=== PATIENT | female | born 1945 | race Caucasian/White ===

== ENCOUNTER 2017-08-15 19:25 | Emergency (ER) | payer OTHER ==
[~2017-08-15] VITALS: Ht 160 cm; Wt 57.0 kg
[2017-08-15 19:51] VITALS: Ht 160 cm; Wt 57.0 kg
[2017-08-15] MEDS ORDERED: morphine 4 MG/ML VIAL IV STA (21:04)
[2017-08-15] MEDS ORDERED: ONDANSETRON 4 MG INJ IV STA (21:04)
[2017-08-15 21:27] LABS: BASOPHILS % 0.4 % (0.0-2.0); EOSINOPHILS % 0.2 % (0.0-7.0); HEMATOCRIT 40.9 % (37.0-47.0); HEMOGLOBIN 13.8 g/dl (12.0-16.0); LYMPHOCYTES # 1.4 10^3/ul (0.8-2.9); MEAN CORPUSCULAR HEMOGLOBIN 30.1 pg (29.0-33.0); MEAN CORPUSCULAR HGB CONC 33.7 g/dl (32.0-37.0); MEAN CORPUSCULAR VOLUME 89.1 fl (82.0-101.0); MEAN PLATELET VOLUME 9.4 fl (7.4-10.4); MONOCYTE # 0.5 10^3/ul (0.3-0.9); MONOCYTES % 4.8 % (0.0-11.0); NEUTROPHIL # 8.5 10^3/ul (1.6-7.5); PLATELET COUNT 212 10^3/UL (140-415); RED BLOOD COUNT 4.59 10^6/ul (4.20-5.40); RED CELL DISTRIBUTION WIDTH 12.9 % (11.5-14.5); WHITE BLOOD COUNT 10.5 10^3/ul (4.8-10.8)
[2017-08-15 21:47] LABS: ALANINE AMINOTRANSFERASE 49 IU/L (13-69); ALBUMIN 4.4 g/dl (3.3-4.9); ALBUMIN/GLOBULIN RATIO 1.33; ALKALINE PHOSPHATASE 60 IU/L (42-121); ANION GAP 12 (8-16); ASPARTATE AMINO TRANSFERASE 62 IU/L (15-46); BILIRUBIN,INDIRECT 0.2 mg/dl (0-1.1); BILIRUBIN,TOTAL 0.2 mg/dl (0.2-1.3); BLOOD UREA NITROGEN 12 mg/dl (7-20); CALCIUM 9.7 mg/dl (8.4-10.2); CARBON DIOXIDE 29 mmol/L (21-31); CHLORIDE 104 mmol/L (97-110); CREATININE 0.79 mg/dl (0.44-1.00); GLUCOSE 128 mg/dl (70-220); POTASSIUM 4.1 mmol/L (3.5-5.1); SODIUM 141 mmol/L (135-144); TOTAL PROTEIN 7.7 g/dl (6.1-8.1)
[2017-08-15 21:56] LABS: ADD UMIC YES; UR ASCORBIC ACID NEGATIVE (NEGATIVE); UR BILIRUBIN (Dip) NEGATIVE (NEGATIVE); UR BLOOD (Dip) 2+ mg/dL (NEGATIVE); UR CLARITY CLEAR (CLEAR); UR COLOR YELLOW (YELLOW); UR GLUCOSE (Dip) NEGATIVE (NEGATIVE); UR KETONES (Dip) NEGATIVE (NEGATIVE); UR LEUKOCYTE ESTERASE (Dip) TRACE Leu/ul (NEGATIVE); UR NITRITE (Dip) NEGATIVE (NEGATIVE); UR RBC 3 /HPF (0-5); UR SPECIFIC GRAVITY (Dip) 1.012 (1.003-1.030); UR TOTAL PROTEIN (Dip) NEGATIVE (NEGATIVE); UR UROBILINOGEN (Dip) NEGATIVE (NEGATIVE)
[2017-08-15 21:59] LABS: TROPONIN-I < 0.012 ng/ml (0.00-0.12)
--- NOTE | 2017-08-15 22:55 | RADRPT ---
PROCEDURE: CT ABDOMEN/PELVIS WITHOUT CONTRAST CLINICAL INDICATION: 72-year-old female with right-sided abdominal pain. TECHNIQUE: The study was performed utilizing a GE [employer] VCT 64-slice CT scanner. Direct axia l sections were obtained through the abdomen and pelvis without the use of intravenous contrast mate rial. Sagittal and coronal reformations were obtained. One or more of the following dose reduction t echniques were utilized: automated exposure control, adjustment of the mA and/or kV according to pat ient's size or use of iterative reconstruction technique. The images were reviewed on a PACS workst [email or web address]. CTD/vol = 7.4 mGy; Total Exam DLP = 336.6 mGy-cm. COMPARISON: Right upper quadrant ultrasound obtained. FINDINGS: There is minimal linear bibasilar subsegmental atelectasis and/or scarring. There is no evidence fo r significant pleural effusion. The liver has a normal size and contour. There is a right hepatic c yst measuring 11 x 11 x 11 mm on axial image 3-30. No intrahepatic nor extrahepatic biliary ductal d ilatation is seen. The gallbladder is distended and contains innumerable small calcified gallstones. The lateral gallbladder wall is thickened measuring 5.2 mm. There is no evidence for pericholecysti c fluid. The pancreas is without areas of abnormal attenuation. The spleen is identified and has a normal size without abnormal density. The adrenal glands are unremarkable. The kidneys are bilateral ly. The right kidney is without abnormal density, calculi or obstruction. There is a punctate nonobs tructing left lower pole renal calculus. There is no evidence for hydronephrosis or obstructive urop athy. The urinary bladder contains urine. There is mild retained stool within the ascending and transverse colon without obstruction. The appendix is visualized and is without abnormal thickening or surrounding inflammatory reaction. The uterus is atrophic and anteflexed. There is no significant free fluid. The aortoiliac vessels are minimally calcified but without aneurysmal dilatation. There is a minimal left inguinal hernia containing fat. Degenerative changes are seen within the spine. T here is an old superior L4 compression fracture with approximately 30% loss of height. IMPRESSION: 1. Cholelithiasis with focally thickened lateral gallbladder wall measuring up to 5.2 mm. 2. Right hepatic 11 mm cyst. 3. Punctate nonobstructing left lower pole renal calculus. 4. Mild retained stool within the proximal colon without obstruction. 5. No CT evidence for appendicitis. 6. Degenerative changes within the spine with old superior L4 compression fracture (30%). .Enrique Matthews MD, MD Date Time Electronically viewed and signed by .Enrique Matthews MD, on 08/15/2017 22:54 .M/
--- NOTE | 2017-08-15 22:56 | RADRPT ---
PROCEDURE: ULTRASOUND LIMITED ABDOMEN CLINICAL INDICATION: 72-year-old female with side abdominal pain. TECHNIQUE: Multiple sonographic of the right upper quadrant of the abdomen were obtained. The imag es were reviewed on a PACS workstation. COMPARISON: CT abdomen/pelvis August 15, 2017. FINDINGS: The pancreas is partially visualized and is otherwise without abnormal echogenicity. The liver displays normal echogenicity. The liver measures 13.6 cm in length. No evidence of intrah epatic biliary ductal dilatation is seen. The portal and hepatic veins are unremarkable. The gallbladder contains multiple shadowing stones. The gallbladder wall thickness is within normal limits measuring 2.7 mm. No pericholecystic fluid is seen. The common bile duct measures 2.8 mm and is not dilated. The right kidney displays normal echogenicity. The right kidney measures 9.2 x 4.9 x 4.3 cm. No max ectasis or hydronephrosis is seen. No free fluid is seen. IMPRESSION: Cholelithiasis. .Enrique Matthews MD, MD Date Time Electronically viewed and signed by .Enrique Matthews MD, MD on 08/15/2017 22:56 .M/
[2017-08-15] MEDS ORDERED: ONDA4TAB14 PO (23:06)
[2017-08-15] MEDS ORDERED: HYDR-902 PO (23:06)
--- NOTE | 2017-08-15 23:08 | ERD ---
ER Documentation Chief Complaint Date/Time DATE: 08/15/17 TIME: 23:07 Chief Complaint pt reports ap and vomiting that started after work today HPI Patient is a 72-year-old male with high cholesterol and GERD who presents with abdominal pain. She has had abdominal pain for the past 5 hours and had the same pain 2 weeks ago. She has vomiting 5 and nausea. She has had no diarrhea. It is right-sided abdominal pain in the upper area. She has had no fevers. It radiates to the back. ROS All systems reviewed and are negative except as per history of present illness. Medications Home Meds Active Scripts Ondansetron (Ondansetron Odt) 4 Mg Tab.rapdis, 4 MG PO Q6H Y for NAUSEA AND/OR VOMITING, #20 TAB Prov:JAD HAYES MD 08/15/17 Hydrocodone/Acetaminophen ([place] 10-325 Tablet) 1 Each Tablet, 1 TAB PO Q6H Y for PAIN, #12 TAB Prov:JAD HAYES MD 08/15/17 Allergies Allergies: Coded Allergies: No Known Allergy (Unverified , 08/15/17) PMhx/Soc Medical and Surgical Hx: pt denies Surgical Hx History of Surgery: No Anesthesia Reaction: No Hx Neurological Disorder: No Hx Respiratory Disorders: No Hx Cardiac Disorders: No Hx Psychiatric Problems: No Hx Miscellaneous Medical Probl: Yes (high cholesterol) Hx Alcohol Use: No Hx Substance Use: No Hx Tobacco Use: No Smoking Status: Never smoker FmHx Family History: No diabetes Physical Exam Vitals Vital Signs Date Time Temp Pulse Resp B/P Pulse Ox O2 Delivery O2 Flow Rate FiO2 08/15/17 19:51 97.7 81 18 170/78 99 Physical Exam Const: Moderate distress secondary to pain Head: Atraumatic Eyes: Normal Conjunctiva ENT: Normal External Ears, Nose and Mouth. Neck: Full range of motion..~ No meningismus. Resp: Clear to auscultation bilaterally Cardio: Regular rate and rhythm, no murmurs Abd: Soft, upper quadrant tenderness to palpation without rebound or guarding Skin: No petechiae or rashes Back: No midline or flank tenderness Ext: No cyanosis, or edema Neur: Awake and alert Psych: Normal Mood and Affect Result Diagram: 08/15/17210908/15/172109 Results 24 hrs Laboratory Tests Test 08/15/17 21:10 08/15/17 21:20 White Blood Count 10.510^3/ul Red Blood Count 4.5910^6/ul Hemoglobin 13.8g/dl Hematocrit 40.9% Mean Corpuscular Volume 89.1fl Mean Corpuscular Hemoglobin 30.1pg Mean Corpuscular Hemoglobin Concent 33.7g/dl Red Cell Distribution Width 12.9% Platelet Count 19474^3/UL Mean Platelet Volume 9.4fl Neutrophils % 81.0% Lymphocytes % 13.0% Monocytes % 4.8% Eosinophils % 0.2% Basophils % 0.4% Nucleated Red Blood Cells % 0.0/100WBC Neutrophils # 8.510^3/ul Lymphocytes # 1.410^3/ul Monocytes # 0.510^3/ul Eosinophils # 0.010^3/ul Basophils # 0.010^3/ul Nucleated Red Blood Cells # 0.010^3/ul Sodium Level 141mmol/L Potassium Level 4.1mmol/L Chloride Level 104mmol/L Carbon Dioxide Level 29mmol/L Anion Gap 12 Blood Urea Nitrogen 12mg/dl Creatinine 0.79mg/dl Glucose Level 128mg/dl Calcium Level 9.7mg/dl Total Bilirubin 0.2mg/dl Direct Bilirubin 0.00mg/dl Indirect Bilirubin 0.2mg/dl Aspartate Amino Transf (AST/SGOT) 62IU/L Alanine Aminotransferase (ALT/SGPT) 49IU/L Alkaline Phosphatase 60IU/L Troponin I < 0.012ng/ml Total Protein 7.7g/dl Albumin 4.4g/dl Globulin 3.30g/dl Albumin/Globulin Ratio 1.33 Lipase 77U/L Urine Color YELLOW Urine Clarity CLEAR Urine pH 7.0 Urine Specific [place] 1.012 Urine Ketones NEGATIVEmg/dL Urine Nitrite NEGATIVEmg/dL Urine Bilirubin NEGATIVEmg/dL Urine Urobilinogen NEGATIVEmg/dL Urine Leukocyte Esterase TRACELeu/ul Urine Microscopic RBC 3/HPF Urine Microscopic WBC 5/HPF Urine Hemoglobin 2+mg/dL Urine Glucose NEGATIVEmg/dL Urine Total Protein NEGATIVEmg/dl Current Medications Medications (Trade) Dose Ordered Sig/Dave Route PRN Reason Start Time Stop Time Status Last Admin Dose Admin Morphine Sulfate (morphine) 4 mg ONCE STAT IV 08/15/17 21:04 08/15/17 21:05 DC 08/15/17 21:31 Ondansetron HCl (Zofran Inj) 4 mg ONCE STAT IV 08/15/17 21:04 08/15/17 21:05 DC 08/15/17 21:31 Procedures/[facility] EKG read by me: Rate/Rhythm: Regular rate and rhythm at a rate of 86 Intervals: Normal Impression: No evidence of ischemia or arrhythmia Ultrasound shows gallstones but no signs of cholecystitis per radiology. CT abdomen pelvis shows gallstones with focal wall thickening per radiology. Patient is a 72-year-old female presents with abdominal pain. She was found to have gallstones but no signs of acute cholecystitis or pancreatitis at this time. Laboratory studies are basically normal and she is afebrile. The patient has no sign of pancreatitis, appendicitis, or bowel obstruction. The patient can return sooner for any worsening symptoms. The patient was given copies of the laboratory studies and imaging test prior to discharge. The patient will follow up with Dr. Metcalf from general surgery to plan for elective cholecystectomy. Departure Diagnosis: Primary Impression: Biliary colic Additional Impression: Abdominal pain Abdominal location: epigastric Qualified Code: R10.13 - Epigastric pain Condition: Fair Patient Instructions: Abdominal Pain, Biliary Colic With Gallstone (Confirmed) Referrals: RUT METCALF MD Additional Instructions: Specialist:Usted tiene penny condicin mdica que requiere que santos a un especialista dentro de los prximos 1-2 zhang.POR FAVOR,CON YOO SEGUIMIENTO DE PRIMARIA PHSICIAN refferal. SI USTED NO TIENE UN MDICO GENERAL Y / O USTED NO PUEDE PAGAR patricio a un mdico,los siguientes rico RECURSOS sido suministrado a usted. ES YOO RESPONSABILIDAD PARA SER VISTOS POR EL ESPECIALISTA: JAD HAYES MD Aug 15, 2017 23:08
[2017-08-15] MEDS ORDERED: SIMV20TA PO (23:46)
[2017-08-15] MEDS ORDERED: MULTI PO (23:46)
[2017-08-15] MEDS ORDERED: LORA10TA3 PO (23:46)
== END 2017-08-15 23:25 | disposition home or self-care (01) ==
LOC: E/R 19:25
DX: K80.50 Calculus of bile duct without cholangitis or cholecystitis without obstruction (principal); R10.13 Epigastric pain
CPT/HCPCS: 36415; 74176; 76705; 80053; 81001; 83690; 84484; 85025; 93005; 96374; 96375; 99285; J2270; J2405

== ENCOUNTER 2018-10-11 20:34 | Emergency (ER) | END 2018-10-12 02:48 | disposition home or self-care (01) ==